=== PATIENT | female | born 1990 | race Caucasian/White ===

== ENCOUNTER 2018-06-22 17:51 | Emergency (ER) | payer BC, MEDICAID ==
[2018-06-22] MEDS: LIDOCAINE 1% (MDV) 10 ML INJ INFIL (19:48)
[2018-06-22] MEDS: LIDOCAINE 1% (MPF) 5 ML VIAL INFIL (19:58)
[2018-06-22] MEDS: ACETAMINOPHEN 500 MG TAB PO (19:58)
[2018-06-22] MEDS: DIPHTH/TET/ACEL PERTUSS (ADULT) 0.5 ML VIAL IM* (20:00)
[2018-06-22] MEDS: IBUPROFEN 600 MG TAB PO (21:34)
[2018-06-22 23:05] LABS: HEPATITIS B SURFACE ANTIGEN NEGATIVE (NEGATIVE)
[2018-06-22 23:22] LABS: HEPATITIS C VIRAL ANTIBODY NEGATIVE (NEGATIVE); HIV 1&2 ANTIBODY NEGATIVE (NEGATIVE)
[2018-06-22 23:22] LABS: HEPATITIS B SURFACE ANTIBODY NEGATIVE (NEGATIVE)
== END 2018-06-22 22:40 | disposition home or self-care (01) ==
LOC: FTE 17:51
DX: S01.01XA Laceration without foreign body of scalp, initial encounter (principal); W18.2XXA Fall in (into) shower or empty bathtub, initial encounter; Y92.9 Unspecified place or not applicable; Z23 Encounter for immunization
CPT/HCPCS: 12001; 70450; 72125; 81025; 86703; 86706; 86803; 87340; 90471; 90715; 99284-25

== ENCOUNTER 2018-06-24 10:26 | Emergency (ER) | payer BC ==
[2018-06-24 12:10] LABS: WHITE BLOOD COUNT 8.4 10^3/ul (4.8-10.8)
[2018-06-24 12:10] LABS: HEMATOCRIT 41.2 % (37.0-47.0); HEMOGLOBIN 13.8 g/dl (12.0-16.0); MEAN CORPUSCULAR HEMOGLOBIN 32.7 pg (29.0-33.0); MEAN CORPUSCULAR HGB CONC 33.5 g/dl (32.0-37.0); MEAN CORPUSCULAR VOLUME 97.6 fl (82.0-101.0); MEAN PLATELET VOLUME 12.6 fl (7.4-10.4); PLATELET COUNT 134 10^3/UL (140-415); RED BLOOD COUNT 4.22 10^6/ul (4.20-5.40); RED CELL DISTRIBUTION WIDTH 13.2 % (11.5-14.5)
[2018-06-24 12:11] LABS: ADD MAN DIFF? YES; POSITIVE DIFF @See below
[2018-06-24 12:18] LABS: ALANINE AMINOTRANSFERASE 22 IU/L (13-69); ALBUMIN 4.4 g/dl (3.3-4.9); ALBUMIN/GLOBULIN RATIO 1.18; ALKALINE PHOSPHATASE 43 IU/L (42-121); ANION GAP 14 (8-16); ASPARTATE AMINO TRANSFERASE 15 IU/L (15-46); BILIRUBIN,INDIRECT 1.2 mg/dl (0-1.1); BILIRUBIN,TOTAL 1.2 mg/dl (0.2-1.3); BLOOD UREA NITROGEN 15 mg/dl (7-20); CALCIUM 9.8 mg/dl (8.4-10.2); CARBON DIOXIDE 26 mmol/L (21-31); CHLORIDE 106 mmol/L (97-110); CREATININE 0.93 mg/dl (0.44-1.00); GLUCOSE 87 mg/dl (70-220); POTASSIUM 4.8 mmol/L (3.5-5.1); SODIUM 141 mmol/L (135-144); TOTAL PROTEIN 8.1 g/dl (6.1-8.1)
[2018-06-24] MEDS: IOHEXOL 300MG/ML 150 ML BTL (12:39)
[2018-06-24] MEDS: SOD CHLORIDE 0.9% 100 ML (12:39)
[2018-06-24 13:19] LABS: EOSINOPHILS % (M) 2 % (0-7); LYMPHOCYTES #M 1.5 10^3/ul (0.8-2.9); LYMPHOCYTES % (M) 19 % (15-51); MONOCYTE #M 0.3 10^3/ul (0.3-0.9); MONOCYTES % (M) 4 % (0-11); PLATELET ESTIMATE DECREASED; SEGMENTED NEUTROPHILS (M) % 75 % (39-77); SMUDGE%M 5 % (0-0)
[2018-06-24] MEDS: DIATR MEGLU/DIATRIZOATE SODIUM 30 ML SOLUTION PO (14:30)
[2018-06-24] MEDS: DIATR MEGLU/DIATRIZOATE SODIUM 120 ML BTL (17:22)
== END 2018-06-24 17:31 | disposition home or self-care (01) ==
LOC: FTE 10:26
DX: J98.2 Interstitial emphysema (principal); H10.9 Unspecified conjunctivitis; Z48.01 Encounter for change or removal of surgical wound dressing
CPT/HCPCS: 70491; 71045; 71250; 80053; 81025; 85025; 99285-25

== ENCOUNTER 2018-06-30 09:24 | Emergency (ER) | payer BC | END 2018-06-30 10:15 | disposition home or self-care (01) | LOC: FTE 09:24 | DX: Z48.02 Encounter for removal of sutures (principal) | CPT/HCPCS: 99281 ==